=== PATIENT | male | born 1980 | race Caucasian/White ===

== ENCOUNTER 2023-04-05 17:30 | Emergency (ER) | payer BC ==
[~2023-04-05] VITALS: Ht 180.3 cm; Wt 101.2 kg
[2023-04-05 17:51] VITALS: BP_SYST 158; PULSE 63; RESP 16; TEMP 97.6; O2SAT 98
[2023-04-05 20:29] LABS: BASOPHILS % (AUTO) 0.4 % (0.0-2.0); EOSINOPHILS # (AUTO) 0.4 K/uL (0.0-0.4); HEMATOCRIT 46.4 % (36-54); HEMOGLOBIN 15.6 g/dL (14.0-18.0); LYMPHOCYTES # (AUTO) 2.3 K/uL (1.0-5.5); LYMPHOCYTES % (AUTO) 22.3 % (20.5-51.5); MEAN CORPUSCULAR HEMOGLOBIN 29 pg (27-31); MEAN CORPUSCULAR HGB CONC 34 % (32-36); MEAN CORPUSCULAR VOLUME 87 fL (79.0-98.0); MONOCYTES # (AUTO) 0.6 K/uL (0.0-1.0); MONOCYTES % (AUTO) 6.1 % (1.7-9.3); NEUTROPHILS # (AUTO) 7.1 K/uL (1.8-7.7); NEUTROPHILS % (AUTO) 67.2 % (40.0-70.0); PLATELET COUNT (AUTO) 294 K/uL (130-430); RED CELL DISTRIBUTION WIDTH 13.5 % (9.0-15.0); WHITE BLOOD COUNT (AUTO) 10.5 K/uL (4.8-10.8)
[2023-04-05 20:39] LABS: ALBUMIN 4.1 g/dL (3.4-4.8); CALCIUM 9.7 mg/dL (8.4-11.0); CREATININE 0.9 mg/dL (0.55-1.30); POTASSIUM 4.5 mmol/L (3.5-5.1); TOTAL BILIRUBIN 0.5 mg/dL (0.0-1.0); TOTAL PROTEIN, SERUM 8.1 g/dL (6.4-8.3)
[2023-04-05] MEDS ORDERED: DIPHENHYDRAMINE INJ 50 MG/ML VIAL IVP ONE (22:45)
[2023-04-05] MEDS ORDERED: NACL 0.9% 1,000 ML IV ONE (22:45)
[2023-04-05] MEDS ORDERED: ACETAMINOPHEN 325 MG TABLET PO ONE (22:45)
[2023-04-05] MEDS ORDERED: PROCHLORPERAZINE EDISYLATE 10 MG/2 ML VIAL IVP ONE (22:45)
[2023-04-05] MEDS ORDERED: iohexoL 350 mgI/mL, 100 ML INFUS..BTL IV ONE (23:18)
[2023-04-06] MEDS ORDERED: IBUP-1969 PO (03:30)
[2023-04-06] MEDS ORDERED: MECL-225 PO (03:30)
[2023-04-06 03:43] VITALS: BP_SYST 168; PULSE 75; RESP 18; O2SAT 98
== END 2023-04-06 03:43 | disposition home or self-care (01) ==
LOC: SED 17:30
DX: R07.9 Chest pain, unspecified (principal); R55 Syncope and collapse; R42 Dizziness and giddiness; R51.9 Headache, unspecified; M54.2 Cervicalgia; Z79.899 Other long term (current) drug therapy
CPT/HCPCS: 99285; 70450; 71045; 96361; 80053; 85025; 84484; 36415; 93005; 76376 ×2; 70496; 96374; 96375; 70498; Q9967; J1200; J0780; J7030